=== PATIENT | male | born 1955 | race Two or more races ===

== ENCOUNTER 2017-11-07 10:30 | Emergency (ER) | payer OTHER ==
[~2017-11-07] VITALS: Ht 172.7 cm; Wt 94.3 kg
--- NOTE | 2017-11-07 10:40 | NUR ---
CONCHIS FROM HOME , SISTER CALLED 911; THE PATIENT HAS BEEN DRNKING FOR 5 DAYS- NON-STOP SHE WANTS HIM "OUT"; BS - 104; EKG - NSR. RR IS EVEN AND UNLABORED WITH NAD NOTED. SKIN IS WARM AND DRY. PLACED ON THE MONITOR. DR BERMAN AT BS FOR EVAL.
[2017-11-07] MEDS ORDERED: LISI40TA4 PO (10:43)
[2017-11-07] MEDS ORDERED: GABA300C PO (10:43)
[2017-11-07] MEDS ORDERED: HYDR25TA4 PO (10:43)
[2017-11-07 10:55] LABS: BASOPHILS % (AUTO) 0.6 % (0.0-2.0); HEMATOCRIT 38 % (39-51); HEMOGLOBIN 13.6 g/dL (13.5-17.5); LYMPHOCYTES # (AUTO) 1.2 /CMM (0.8-4.8); LYMPHOCYTES % (AUTO) 17.6 % (20.0-44.0); MEAN CORPUSCULAR HGB CONC 35 g/dl (31.0-36.0); MEAN CORPUSCULAR VOLUME 91 fL (80-96); MONOCYTES # (AUTO) 0.6 /CMM (0.1-1.30); MONOCYTES % (AUTO) 8.1 % (2.0-12.0); NEUTROPHILS % (AUTO) 72.7 % (43.0-81.0); PLATELET COUNT (AUTO) 187 /CMM (150-450); RDW COEFFICIENT OF VARIATION 12.7 (11.5-15.0); RED BLOOD CELL COUNT(AUTO) 4.21 MIL/uL (4.5-6.0); WHITE BLOOD COUNT (AUTO) 6.9 K/uL (4.3-11.0)
[2017-11-07 11:22] LABS: CREATININE 0.9 mg/dL (0.6-1.3); POTASSIUM 3.3 mmol/L (3.5-5.1)
[2017-11-07 11:25] LABS: ALBUMIN 3.1 g/dL (3.4-5.0); BILIRUBIN,DIRECT 0.2 mg/dL (0.0-0.2); BILIRUBIN,TOTAL 0.6 mg/dL (0.2-1.0); TOTAL PROTEIN, SERUM 6.4 g/dL (6.4-8.2)
[2017-11-07 11:27] LABS: SALICYLATE 1.4 mg/dL (2.8-20.0)
--- NOTE | 2017-11-07 11:40 | NUR ---
URINE OBTAINED SENT TO THE LAB.
[2017-11-07 11:56] LABS: APPEARANCE,URINE Clear (CLEAR); BILIRUBIN,URINE Negative (NEGATIVE); BLOOD, URINE Negative Ery/uL (NEGATIVE); COLOR,URINE Yellow (YELLOW); KETONES,URINE Negative (NEGATIVE); LEUKOCYTE ESTERASE ,URINE Negative (NEGATIVE); NITRITE, URINE Negative (NEGATIVE); PROTEIN,URINE Negative (NEGATIVE); UGLUCOSE 100 MG/DL mg/dL (NEGATIVE); UROBILINOGEN,URINE 0.2 EU/dL (0.2)
--- NOTE | 2017-11-07 12:30 | NUR ---
Patient is resting comfortably in bed with eyes closed. Easily aroused. VSS
--- NOTE | 2017-11-07 13:50 | NUR ---
Patient is resting comfortably in bed with eyes closed. Easily aroused. VSS
--- NOTE | 2017-11-07 14:35 | NUR ---
Patient is resting comfortably in bed with eyes closed. Easily aroused. VSS
--- NOTE | 2017-11-07 15:30 | NUR ---
PATIENT IS COMFORTABLY SLEEPING ON THE BED. PATIENT IS CALM.
--- NOTE | 2017-11-07 16:22 | NUR ---
PATIENT AMBULATES THE HALLWAY WITH STEADY GAIT. [id number].
[2017-11-07 16:25] VITALS: BP 123/72
--- NOTE | 2017-11-07 16:27 | NUR ---
Patient discharged to home in stable condition. Written and verbal after care instructions given. Patient verbalizes understanding of instruction.
== END 2017-11-07 16:32 | disposition home or self-care (01) ==
LOC: ER 10:31
DX: F10.129 Alcohol abuse with intoxication, unspecified (principal); R41.82 Altered mental status, unspecified; I10 Essential (primary) hypertension
CPT/HCPCS: 36415; 80048-TC; 80076-TC; 80305; 81000-TC; 85025-TC; A4606; G0480; Z7610